=== PATIENT | female | born 1970 | race Caucasian/White ===

== ENCOUNTER 2023-07-24 18:43 | Emergency (ER) | payer MEDICAID ==
[~2023-07-24] VITALS: Ht 167.6 cm; Wt 81.8 kg
[2023-07-24 19:05] VITALS: BP 104/68
[2023-07-24] MEDS ORDERED: AZIT250T PO (20:52)
[2023-07-24] MEDS ORDERED: ALBU8HFA INH (20:52)
[2023-07-24] MEDS ORDERED: PROM118S5 PO (20:52)
[2023-07-24] MEDS: ipratropium/albuterol 3ml nebule NEB STA (20:53)
[2023-07-24 20:54] VITALS: PULSE 85; RESP 16; O2SAT 95
[2023-07-24] MEDS: ipratropium/albuterol 3ml nebule NEB ONE (20:59)
[2023-07-24 21:01] VITALS: PULSE 76; RESP 16; O2SAT 100
[2023-07-24] MEDS: CefTRIAXone 1000mg IM Kit (w/lidocaine diluent) IM ONE (21:07)
[2023-07-24] MEDS: dexamethasone sod phosphate 10mg/ml inj IM STA (21:07)
[2023-07-24 21:10] VITALS: PULSE 100; RESP 18; TEMP 98.2; O2SAT 98
== END 2023-07-24 21:12 | disposition home or self-care (01) ==
LOC: ER 18:43
DX: J22 Unspecified acute lower respiratory infection (principal); J18.9 Pneumonia, unspecified organism; R06.2 Wheezing; Z88.0 Allergy status to penicillin; Z88.2 Allergy status to sulfonamides; Z72.89 Other problems related to lifestyle
CPT/HCPCS: 71045; 94640; 96372; 99284; J0696; J1100; 94760

== ENCOUNTER 2023-07-26 20:45 | Emergency (ER) | payer MEDICAID ==
[~2023-07-26] VITALS: Ht 167.6 cm; Wt 81.8 kg
[~2023-07-26 20:45] MED LIST: ALBU8HFA INH; AZIT250T PO; PROM118S5 PO
[2023-07-26 23:36] VITALS: BP 115/62; PULSE 75; RESP 18; TEMP 98.6; O2SAT 98
== END 2023-07-26 23:38 | disposition home or self-care (01) ==
LOC: ER 20:46
DX: J18.9 Pneumonia, unspecified organism (principal); Z72.89 Other problems related to lifestyle; Z88.0 Allergy status to penicillin; Z88.2 Allergy status to sulfonamides; Z79.899 Other long term (current) drug therapy
CPT/HCPCS: 71045; 99283